=== PATIENT | female | born 1940 | race Caucasian/White ===

== ENCOUNTER → 2016-10-09 | Outpatient (CLI) | payer OTHER ==
--- NOTE | 2016-10-09 15:00 | DIAGNOSTIC IMAGING REPORT ---
PROCEDURE: DEXA BONE DENSITY STUDY CLINICAL INDICATION: Screening, history of systemic steroid therapy, smoking, lung cancer. COMPARISON: None. FINDINGS: LUMBAR SPINE: Bone mineral density 1.037 g/cm2, T score -0.1, normal. LEFT HIP: Bone mineral density 0.845 g/cm2, T score -0.8, normal LEFT FEMORAL NECK: Bone mineral density 0.655 g/cm2, T score -1.7, osteopenia. FRACTURE RISK CALCULATION ( when applicable): 10-year fracture risk of a major osteoporotic fracture 19% and of a hip fracture 7.5% (T score greater or equal to -1.0 to: NORMAL) (T score from -1.1 to -2.4: OSTEOPENIA) (T score ess than or equal to -2.5: OSTEOPOROSIS) IMPRESSION: 1. Osteopenia of the left femoral neck elevates the patient's 10-year fracture risk as described.
== END ==
LOC: XR SRH 14:15
DX: M85.88 Other specified disorders of bone density and structure, other site (principal); Z92.241 Personal history of systemic steroid therapy